=== PATIENT | female | born 1955 | race Two or more races ===

== ENCOUNTER → 2017-09-09 | Outpatient (CLI) | payer BC ==
--- NOTE | 2017-09-09 14:04 | Diagnostic Imaging Report ---
PROCEDURE: X-RAY CHEST, TWO VIEWS COMPARISON: None. INDICATIONS: PNEUMONIA FINDINGS: The lungs are well-inflated. No focal airspace consolidation, pleural effusion, or pneumothorax. Hazy opacity over the lower lobes is a result of summation of overlying soft tissues. Tortuous thoracic aorta. Mild cardiomegaly without vascular decompensation. No acute osseous abnormality. Upper abdominal surgical clips likely reflect cholecystectomy. CONCLUSION: No acute cardiopulmonary abnormality. Mild cardiomegaly without vascular decompensation. Dictated by: Joel Madrid M.D. on 09/09/2017 at 14:07 Electronically approved by: Joel Madrid M.D. on 09/09/2017 at 14:07
== END ==
LOC: RAD 12:48
PROVIDERS: ATTEND Internal Medicine
DX: J18.9 Pneumonia, unspecified organism (principal)
CPT/HCPCS: 71046